=== PATIENT | female | born 1955 | race Caucasian/White ===

== ENCOUNTER 2019-04-11 17:22 | Emergency (ER) | payer OTHER ==
[~2019-04-11] VITALS: Ht 162.6 cm; Wt 95.3 kg
[2019-04-11 17:22] VITALS: BP 169/82
--- NOTE | 2019-04-11 17:23 | NUR ---
Patient BIBA ALS, transferred to bed 10. RN evaluating patient at bedside.
--- NOTE | 2019-04-11 17:35 | NUR ---
BIB BLS C/O CHEST PAIN STARTING THIS MORNING UNPROVOKED, SUB STERNAL. PT REPORTS HAVING CHEST PAIN ON/OFF FOR A MONTH. NO SOB, NO LABORED BREATHING. AAOX3. PT IS NOT HAVING ANY PAIN AT THIS TIME. PMH: EPILEPSY, DEPRESSION RX: CITALOPRAN, TOPIRAMATE, ONDANSETRON ALLERGIES: CODEINE, DILANTIN, AZAPAM
[2019-04-11 18:27] LABS: BASOPHILS # (AUTO) 0.1 K/uL (0.00-0.22); BASOPHILS % (AUTO) 1.5 % (0.0-2.0); EOSINOPHILS # (AUTO) 0.6 K/uL (0-0.4); EOSINOPHILS % (AUTO) 8.2 % (0.0-4.0); HEMATOCRIT 40.9 % (36-48); HEMOGLOBIN 13.4 g/dL (12.0-16.0); LYMPHOCYTES # (AUTO) 2.7 K/uL (2.5-16.5); LYMPHOCYTES % (AUTO) 36.8 % (20.5-51.1); MEAN CORPUSCULAR HEMOGLOBIN 30 pg (27-31); MEAN CORPUSCULAR HGB CONC 33 g/dL (33-37); MEAN CORPUSCULAR VOLUME 90.8 fL (80-94); MONOCYTES # (AUTO) 0.6 K/uL (0.8-1.0); MONOCYTES % (AUTO) 8.1 % (1.7-9.3); NEUTROPHILS # (AUTO) 3.3 K/uL (1.8-7.7); NEUTROPHILS % (AUTO) 45.4 % (42.2-75.2); PLATELET COUNT (AUTO) 331 K/uL (140-450); RED CELL DISTRIBUTION WIDTH 14.1 % (11.6-13.7); WHITE BLOOD COUNT (AUTO) 7.2 K/uL (4.8-10.8)
[2019-04-11 18:34] LABS: ANION GAP 16.9 (8-16); CARBON DIOXIDE 22.6 mmol/L (21-32); CREATININE 0.8 mg/dL (0.6-1.3); POTASSIUM 3.5 mmol/L (3.5-5.1)
--- NOTE | 2019-04-11 18:48 | NUR ---
PT RESTING IN BED, STABLE, SIDE RAILS UP
[2019-04-11 18:49] LABS: ALBUMIN 3.9 g/dL (3.4-5.0); TOTAL BILIRUBIN 0.2 mg/dL (0.0-1.0)
--- NOTE | 2019-04-11 19:07 | NUR ---
PT RESTING IN BED, STABLE, SIDE RAILS UP
[2019-04-11] MEDS ORDERED: ASPIRIN 81 MG TAB.CHEW PO ONE (20:05)
--- NOTE | 2019-04-11 20:16 | NUR ---
PT IS RESTING IN BED. VERY MILD CHEST PAIN 04/16. ASP GIVEN. ALL NEEDS MET
[2019-04-11 22:00] VITALS: BP 133/72
--- NOTE | 2019-04-11 22:01 | NUR ---
Patient discharged with v/s stable. Written and verbal after care instructions given and explained. Patient verbalized understanding. Ambulatory with steady gait. All questions addressed prior to discharge. Advised to follow up with PMD.
== END 2019-04-11 22:00 | disposition home or self-care (01) ==
LOC: MED 17:22
DX: R07.89 Other chest pain (principal); K21.9 Gastro-esophageal reflux disease without esophagitis; F32.9 Major depressive disorder, single episode, unspecified; Z88.5 Allergy status to narcotic agent; Z88.8 Allergy status to other drugs, medicaments and biological substances
CPT/HCPCS: 36415; 71045; 80053; 83880; 84484; 85025; 93005; 99284; Q0092

== ENCOUNTER 2021-10-05 13:08 | Emergency (ER) | payer OTHER ==
[~2021-10-05] VITALS: Ht 162.6 cm; Wt 74.4 kg
[2021-10-05 13:11] VITALS: BP 132/77
[2021-10-05] MEDS ORDERED: predniSONE 20 MG TAB PO ONE (14:25)
[2021-10-05] MEDS ORDERED: diphenhydrAMINE 50 MG/ML VIAL IM ONE (14:25)
[2021-10-05] MEDS ORDERED: CETI10TA81 PO (14:43)
[2021-10-05] MEDS ORDERED: KEN.1O80 TP (14:44)
[2021-10-05] MEDS ORDERED: PRED20TA6 PO (14:45)
[2021-10-05 15:10] VITALS: BP 129/76
--- NOTE | 2021-10-05 15:10 | NUR ---
Patient discharged with v/s stable. Written and verbal after care instructions ABOUT HIVES given and explained. Patient alert, oriented and verbalized understanding of instructions. Ambulatory with steady gait. All questions addressed prior to discharge. ID band removed. Patient advised to follow up with PMD. Rx of ZYRTEC, KENALOG 0.1%, AND PREDNISONE given. Patient educated on indication of medication including possible reaction and side effects. Opportunity to ask questions provided and answered.
--- NOTE | 2021-10-05 15:13 | NUR ---
NOTIFIED [facility] THAT PT WILL BE RETURNING VIA UBER. HOUSE SUP CONTACTED FOR UBER.
== END 2021-10-05 15:10 | disposition home or self-care (01) ==
LOC: MED 13:08
DX: L50.9 Urticaria, unspecified (principal); K21.9 Gastro-esophageal reflux disease without esophagitis; Z88.5 Allergy status to narcotic agent; Z88.8 Allergy status to other drugs, medicaments and biological substances; Z79.899 Other long term (current) drug therapy
CPT/HCPCS: 96372; 99283; J1200; J7512